=== PATIENT | male | born 1965 | race Caucasian/White ===

== ENCOUNTER 2018-08-05 11:47 | Day surgery (SDC) | payer OTHER ==
[~2018-08-05] VITALS: Ht 175.3 cm; Wt 79.5 kg
[2018-08-05] MEDS ORDERED: SODIUM CHLORIDE 0.9% 1,000 ML IV SCH ×2 (13:06→14:55)
[2018-08-05] MEDS ORDERED: ISOS30TA8 PO (13:17)
[2018-08-05] MEDS ORDERED: PANT20TA2 PO (13:18)
[2018-08-05] MEDS ORDERED: LISI-167 PO (13:18)
[2018-08-05] MEDS ORDERED: ROSU5TAB PO (13:18)
[2018-08-05 13:19] VITALS: BP 137/73
[2018-08-05] MEDS ORDERED: TICAGRELOR 90 MG TABLET ONE (13:51)
[2018-08-05] MEDS ORDERED: FENTANYL PF 100 MCG/2ML ONE (13:51)
[2018-08-05] MEDS ORDERED: VERAPAMIL 2.5 MG/ML, 2ML ONE (13:51)
[2018-08-05] MEDS ORDERED: HEPARIN 1,000 UNITS/ML, 10ML ONE (13:51)
[2018-08-05] MEDS ORDERED: BIVALIRUDIN 250 MG ONE (13:51)
[2018-08-05] MEDS ORDERED: MIDAZOLAM 1 MG/ML, 5ML ONE (13:51)
[2018-08-05] MEDS ORDERED: LIDOCAINE-MPF 1%, 5ML ONE (13:52)
== END 2018-08-05 16:47 | disposition home or self-care (01) ==
LOC: CACL 11:47
PROVIDERS: ATTEND Internal Medicine Cardiovascular Disease
DX: I25.10 Atherosclerotic heart disease of native coronary artery without angina pectoris (principal); I10 Essential (primary) hypertension; E78.00 Pure hypercholesterolemia, unspecified; Z87.891 Personal history of nicotine dependence; Z88.1 Allergy status to other antibiotic agents; Z88.8 Allergy status to other drugs, medicaments and biological substances; Z98.890 Other specified postprocedural states; Z95.5 Presence of coronary angioplasty implant and graft
CPT/HCPCS: 93458; 99156; C1769; C1894; J1644; J2250; J3010; Q9967; J0583

== ENCOUNTER 2018-10-27 12:20 | Outpatient (CLI) | payer OTHER ==
[~2018-10-27 12:20] MED LIST: ISOS30TA8 PO; LISI-167 PO; PANT20TA2 PO; ROSU5TAB PO
== END 2018-10-27 23:59 | disposition home or self-care (01) ==
LOC: CARD 12:20
PROVIDERS: ATTEND Physician Assistant Medical
DX: R06.00 Dyspnea, unspecified (principal)
CPT/HCPCS: 94060; 94726; 94729